=== PATIENT | female | born 2000 | race Caucasian/White ===

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

== ENCOUNTER 2021-06-21 16:45 | Emergency (ER) | payer BC, MEDICAID, SELFPAY ==
--- NOTE | 2021-06-21 17:03 | XRR_ITS ---
PROCEDURE INFORMATION: Exam: XR Left Hand Exam date and time: 06/21/2021 5:03 PM Age: 20 years old Clinical indication: Finger(s); Left; Patient HX: Pain 5th finger; Additional info: Injury TECHNIQUE: Imaging protocol: XR Left hand. Views: 3 or more views. COMPARISON: No relevant prior studies available. FINDINGS: Bones/joints: Fifth digit appears to be held in flexion without fracture or dislocation. Soft tissues: Normal. XR/XR hand LT min 3V* [id number] IMPRESSION: Fifth digit appears to be held in flexion without fracture or dislocation.
[2021-06-21 17:34] VITALS: BMI 21.4
--- NOTE | 2021-06-21 17:37 | ED_ITS ---
HPI - Extremity Injury (Upper) General: Chief Complaint: Extremity Injury, Upper Stated Complaint: left hand injury Time Seen by Provider: 06/21/21 17:35 History of Present Illness: HPI narrative: Patient is a 20-year-old female comes to the ED with injury to left hand. Injury occurred just prior to arrival. Patient says she has Tourette's and she had an episode where she jerked her hand down on the table really hard. It caused bruising and swelling to the lateral aspect of patient's left hand just below the base of pinky finger. It caused her finger to want a contract and she says it has caused some tingling sensation to her fifth digit. Patient is still able to move fifth digit. She says the pain is mild and she has not taken anything for pain since injury. She states she does not need anything for pain while here in the ED. Associated symptoms: Denies neck pain or weakness in extremities Review of Systems Const: Denies: fever(s), chills or fatigue Eyes: Denies: change in vision or eye discomfort ENMT: Denies: throat pain, odynophagia, nasal discharge or nasal congestion Card: Denies: chest pain, palpitations, edema, swelling of feet/ankles, dyspnea on exertion or orthopnea Resp: Denies: dyspnea, productive cough or non-productive cough GI: Denies: abdominal pain, nausea, vomiting, diarrhea, constipation or hematochezia : Denies: flank pain, dysuria or hematuria Musc: Reports: extremity pain (left hand pain) and extremity swelling (swelling and bruising on lateral aspect of L hand); Denies: neck pain or back pain Skin/Breast: Denies: rash or new lesions Neuro: Denies: headache(s), numbness in extremities or weakness in extremities [facility] ED PFSH: Medical History Chiari malformation Pulmonary stenosis Social History Current gender identity: Female Female Reproductive History: Date of last menstrual period: 06/13/20 Physical Exam Const: COMMON NORMALS: no acute distress, patient oriented x3, healthy appearing and alert GENERAL APPEARANCE: cooperative and comfortable HENMT: COMMON NORMALS: normocephalic HEAD & SCALP: normocephalic MOUTH: Normal oral and palatal mucosa present THROAT: posterior oropharynx normal and uvula midline Neck/C-Spine: COMMON NORMALS: supple GENERAL: Yes normal visual inspection Resp: COMMON NORMALS: normal respiratory effort, No retractions, No use of accessory muscles and clear to auscultation bilaterally AUSCULTATION: clear t o auscultation bilaterally Cardio: COMMON NORMALS: regular rate, regular rhythm, S1 normal heart sound present, S2 normal heart sound present, No gallops present (Cardio), No clicks present (Cardio), No murmurs present (Cardio) and Peripheral pulses 2+ throughout RATE: regular rate RHYTHM: regular rhythm HEART SOUNDS: S1 normal heart sound present and S2 normal heart sound present PERIPHERAL PULSES: Peripheral pulses 2+ throughout GI: COMMON NORMALS: Normal to inspection, nondistended, normoactive bowel sounds present, Soft to palpation, non-tender and no masses PALPATION: Yes Soft to palpation : COMMON NORMALS: Yes no CVA tenderness BLADDER/KIDNEY EXAM: Yes no CVA tenderness Back/Pelvis: COMMON NORMALS: no CVA tenderness Extremity: COMMON NORMALS: normal to inspection Neuro: COMMON NORMALS: patient oriented x3 and moves all extremities SENSORIUM/ORIENTATION: Yes alert Skin: GENERAL SKIN EXAM: dry skin MDM - Extremity Injury (Upper) MDM Narrative: Medical decision making narrative: Patient is a 20-year-old fe male comes to the ED with left hand injury. Patient has Tourette's and says she had an episode and hit her left hand on a table. She now has some bruising and swelling on the lateral aspect of left hand at the base of her fifth digit. X- ray was negative for any acute fractures or findings. Patient's fifth digit of left hand did appear to stay in the flexion position, so we cuca taped her four th and fifth digits together to keep fifth digit straighten. Patient diagnosed with left hand contusion discharged home. She was told to ice left hand and to take [id number]-[id number] ibuprofen per bottle instruction for pain and inflammation. Patient told to follow-up with PCP in 5 to 7 days for reevaluation. Return ED precautions given. Patient understood and agree with plan. Imaging Data^: Xray Ortho: Attestation: I personally reviewed and interpreted this imaging study as follows: Radiologist's impression: [employer] [address] XRay Report Signed Patient: Smith Whiting Unit #: [id number] : 2000 Age/Sex: 20 / F ADM Date: 06/21/21 Loc: ER Room/Bed: Attending Dr: Ordering Provider/Ordering MD: Carmen Carvalho Date of Service: 06/21/21 Procedure(s): XR hand LT min 3V* [id number] Accession Number(s): [id number] Report Number: [id number] PROCEDURE INFORMATION: Exam: XR Left Hand Exam date and time: 06/21/2021 5:03 PM Age: 20 years old Clinical indication: Finger(s); Left; Patient HX: Pain 5th finger; Additional info: Injury TECHNIQUE: Imaging protocol: XR Left hand. Views: 3 or more views. COMPARISON: No relevant prior studies available. FINDINGS: Bones/joints: Fifth digit appears to be held in flexion without fracture or dislocation. Soft tissues: Normal. XR/XR hand LT min 3V* [id number] IMPRESSION: Fifth digit appears to be held in flexion without fracture or dislocation. Dictated By: Bruno Andrew MD Signed By: Bruno Andrew MD Signed Date/Time: 06/21/211732 DD/ 31 Discharge Plan Discharge Patient Disposition: Home Clinical Impression: Contusion of hand, left Qualifiers: Encounter type: initial encounter Qualified Code(s): S60.222A - Contusion of left hand, initial encounter Condition: Stable Discharge Orders: Discharge ED (Routine); Ordered 06/21/21 Ordered By: Aroldo Robin Discharge Diet: Regular Discharge Activity: Increase activity as tolerated Patient Instructions: Contusion in Adults (ED) Activity Restrictions/Additional Instructions: Follow-up with medical provider as directed in 5 to 7 days for reevaluation. Apply cold pack, on hand and take [id number] ibuprofen up with pain and inflammation. Cuca tape your fourth and fifth digit together daily to prevent fifth digit from staying then permanent flexion for the next 3-5 days. Return to the ER or your medical provider if condition worsens. Please read and understand discharge instructions. Thank you for choosing [facility] for your healthcare needs today. Please realize this is an emergency room and that we are providing you with a medical screening exam and this may not be complete and all inclusive of all the testing and or work up that you may need to determine your ailment or severity of your illness. It is very important that you follow up as instructed or that you return to the Emergency Department should you have concerns or if your condition changes or worsens in any way. Coding Level of Care Code ED Nut Dehydrator Operator for Shantellg Fwd Exam Comprehensive
== END 2021-06-21 18:03 | disposition home or self-care (01) ==
PROVIDERS: Emergency Provider Physician Assistant
DX: S60.222A Contusion of left hand, initial encounter (principal); F95.2 Tourette's disorder; W22.03XA Walked into furniture, initial encounter
CPT/HCPCS: 73130; 99282